=== PATIENT | male | born 1955 | race Caucasian/White ===

== ENCOUNTER 2020-07-11 23:37 | Inpatient (IN) | payer MEDICARE, OTHER ==
[2020-07-11] MEDS ORDERED: Metoprolol Tartrate 5 MG/5 ML VIAL ONE (23:50)
[2020-07-12] MEDS ORDERED: Metoprolol Tartrate 5 MG/5 ML VIAL ONE (00:38)
[2020-07-12] MEDS ORDERED: Diltiazem 125 MG/25 ML ONE (01:20)
[2020-07-12 03:40] LABS: Troponin I Less than 0.010 ng/mL (< 0.028)
[2020-07-12] MEDS ORDERED: Ondansetron PF 4 MG/2 ML Vial IVP PRN (04:34)
[2020-07-12] MEDS: Sodium Chloride 0.9% 1,000 ML IV SCH (06:03)
[2020-07-12] MEDS: Diltiazem 125 MG in Sodium Chloride 0.9% 100 ML IVPB SCH (07:13)
[2020-07-12 07:59] LABS: #Eosinphils 0.2 thou/uL (0.0-0.7); #Lymphocytes 1.5 thou/uL (1.20-3.40); #Monocytes 0.7 thou/uL (0.11-0.59); #Neutrophils 4.1 thou/uL (1.40-6.50); %Basophils 0.2 % (0.0-1.0); %Eosinophils 3.3 % (0.0-10.0); %Neutrophils 62.5 % (42.0-75.0); Hemoglobin 14.8 g/dL (14.0-18.0); Mean Corpuscular HGB CONC 32.8 g/dL (32.0-36.0); Mean Corpuscular Hemoglobin 31.8 pg (27.0-31.0); Mean Corpuscular Volume 96.9 fL (78.0-98.0); Platelet Count 204 thou/uL (130-400); RBC Distribution Width 11.1 % (11.5-14.5); Red Blood Cell (RBC) Count 4.65 mill/uL (4.70-6.10); White Blood Cell (WBC) Count 6.5 thou/uL (4.8-10.8)
[2020-07-12 08:20] LABS: Anion Gap 15 mmol/L (10-20); BUN (Urea Nitrogen) 8 mg/dL (8.4-25.7); Calc. Creatinine Clearance 0 mL/min (70-130); Calcium 9.1 mg/dL (7.8-10.44); Carbon Dioxide 24 mmol/L (23-31); Chloride 102 mmol/L (98-107); Glucose 123 mg/dL (80-115); Potassium 3.7 mmol/L (3.5-5.1); Sodium 137 mmol/L (136-145)
[2020-07-12] MEDS: Apixaban 5 MG TAB PO SCH ×2 (08:34→21:13)
[2020-07-12 08:39] LABS: Troponin I Less than 0.010 ng/mL (< 0.028)
[2020-07-12] MEDS: Acetaminophen 325 MG TAB PO PRN (14:27)
[2020-07-12] MEDS ORDERED: Acetaminophen 325 MG TAB ONE (14:29)
[2020-07-12 15:40] VITALS: BMI 30.9
[2020-07-12] MEDS ORDERED: Melatonin 3 MG TAB PO PRN (22:38)
[2020-07-13] MEDS: Sodium Chloride 0.9% 1,000 ML IV SCH ×2 (02:40→19:22)
[2020-07-13] MEDS: Diltiazem 125 MG in Sodium Chloride 0.9% 100 ML IVPB SCH (02:40)
[2020-07-13 05:29] LABS: #Eosinphils 0.2 thou/uL (0.0-0.7); #Lymphocytes 1.5 thou/uL (1.20-3.40); #Monocytes 0.8 thou/uL (0.11-0.59); #Neutrophils 4.3 thou/uL (1.40-6.50); %Basophils 0.5 % (0.0-1.0); %Eosinophils 3.4 % (0.0-10.0); %Monocytes 11.8 % (0.0-10.0); %Neutrophils 62.4 % (42.0-75.0); Hemoglobin 13.9 g/dL (14.0-18.0); Mean Corpuscular HGB CONC 33.1 g/dL (32.0-36.0); Mean Corpuscular Hemoglobin 32.1 pg (27.0-31.0); Mean Corpuscular Volume 96.7 fL (78.0-98.0); Mean Platelet Volume 6.8 fL (7.4-10.4); Platelet Count 216 thou/uL (130-400); Red Blood Cell (RBC) Count 4.34 mill/uL (4.70-6.10); White Blood Cell (WBC) Count 6.9 thou/uL (4.8-10.8)
[2020-07-13 05:47] LABS: Anion Gap 12 mmol/L (10-20); BUN (Urea Nitrogen) 7 mg/dL (8.4-25.7); Calc. Creatinine Clearance 138 mL/min (70-130); Calcium 8.9 mg/dL (7.8-10.44); Carbon Dioxide 27 mmol/L (23-31); Cardiac Risk 4.4 (Less than 4.5); Chloride 101 mmol/L (98-107); Cholesterol 166 mg/dl (< 200 Desired); Glucose 102 mg/dL (80-115); HDL Cholesterol 38 mg/dL (>60 Neg Risk); LDL Cholesterol, Calculated 103 mg/dL; Potassium 3.8 mmol/L (3.5-5.1); Sodium 136 mmol/L (136-145); Triglycerides 126 mg/dL (Less than 150)
[2020-07-13] MEDS: Acetaminophen 325 MG TAB PO PRN ×2 (08:02→14:28)
[2020-07-13] MEDS: Apixaban 5 MG TAB PO SCH (08:02)
[2020-07-14] MEDS: Sodium Chloride 0.9% 1,000 ML IV SCH (04:37)
[2020-07-14 05:54] LABS: #Eosinphils 0.2 thou/uL (0.0-0.7); #Lymphocytes 2.3 thou/uL (1.20-3.40); #Monocytes 0.9 thou/uL (0.11-0.59); #Neutrophils 2.9 thou/uL (1.40-6.50); %Basophils 0.1 % (0.0-1.0); %Eosinophils 2.6 % (0.0-10.0); %Lymphocytes 36.8 % (21.0-51.0); %Monocytes 13.8 % (0.0-10.0); %Neutrophils 46.7 % (42.0-75.0); Mean Corpuscular HGB CONC 34.2 g/dL (32.0-36.0); Mean Corpuscular Volume 96.5 fL (78.0-98.0); Mean Platelet Volume 6.9 fL (7.4-10.4); Platelet Count 216 thou/uL (130-400); RBC Distribution Width 10.8 % (11.5-14.5); Red Blood Cell (RBC) Count 4.23 mill/uL (4.70-6.10); White Blood Cell (WBC) Count 6.2 thou/uL (4.8-10.8)
[2020-07-14 05:55] LABS: Anion Gap 12 mmol/L (10-20); BUN (Urea Nitrogen) 8 mg/dL (8.4-25.7); Calc. Creatinine Clearance 128 mL/min (70-130); Carbon Dioxide 29 mmol/L (23-31); Chloride 103 mmol/L (98-107); Glucose 91 mg/dL (80-115); Potassium 3.7 mmol/L (3.5-5.1); Sodium 140 mmol/L (136-145)
[2020-07-14] MEDS: Acetaminophen 325 MG TAB PO PRN ×3 (07:30→22:40)
[2020-07-14] MEDS: Amiodarone 200 MG TAB PO SCH ×2 (16:34→20:44)
[2020-07-14] MEDS ORDERED: Loperamide HCl 2 MG CAP PO SCH (17:30)
[2020-07-14] MEDS: Carvedilol 6.25 MG TAB PO SCH (18:31)
[2020-07-14] MEDS: Apixaban 5 MG TAB PO SCH (20:45)
[2020-07-14] MEDS ORDERED: Metoprolol Tartrate 50 MG TAB PO SCH (21:00)
[2020-07-15 06:55] LABS: #Eosinphils 0.2 thou/uL (0.0-0.7); #Lymphocytes 1.7 thou/uL (1.20-3.40); #Monocytes 0.6 thou/uL (0.11-0.59); #Neutrophils 3.2 thou/uL (1.40-6.50); %Basophils 0.5 % (0.0-1.0); %Eosinophils 3.6 % (0.0-10.0); %Lymphocytes 29.8 % (21.0-51.0); %Neutrophils 55.1 % (42.0-75.0); Hemoglobin 14.5 g/dL (14.0-18.0); Mean Corpuscular HGB CONC 33.5 g/dL (32.0-36.0); Mean Corpuscular Volume 95.7 fL (78.0-98.0); Mean Platelet Volume 6.8 fL (7.4-10.4); Platelet Count 230 thou/uL (130-400); RBC Distribution Width 10.8 % (11.5-14.5); Red Blood Cell (RBC) Count 4.54 mill/uL (4.70-6.10); White Blood Cell (WBC) Count 5.8 thou/uL (4.8-10.8)
[2020-07-15 07:16] LABS: Anion Gap 12 mmol/L (10-20); BUN (Urea Nitrogen) 8 mg/dL (8.4-25.7); Calc. Creatinine Clearance 128 mL/min (70-130); Calcium 9.1 mg/dL (7.8-10.44); Carbon Dioxide 27 mmol/L (23-31); Chloride 105 mmol/L (98-107); Glucose 91 mg/dL (80-115); Potassium 4.1 mmol/L (3.5-5.1); Sodium 140 mmol/L (136-145)
[2020-07-15] MEDS: Lisinopril 2.5 MG TAB PO SCH (08:26)
[2020-07-15] MEDS: Amiodarone 200 MG TAB PO SCH ×3 (08:26→20:58)
[2020-07-15] MEDS: Furosemide 20 MG TAB PO SCH (08:27)
[2020-07-15] MEDS: Carvedilol 6.25 MG TAB PO SCH ×2 (08:27→17:32)
[2020-07-15] MEDS: Apixaban 5 MG TAB PO SCH ×2 (08:27→20:58)
[2020-07-15] MEDS: Acetaminophen 325 MG TAB PO PRN ×2 (14:50→21:01)
[2020-07-16] MEDS: Amiodarone 200 MG TAB PO SCH (08:42)
[2020-07-16] MEDS: Carvedilol 6.25 MG TAB PO SCH (08:42)
[2020-07-16] MEDS: Lisinopril 2.5 MG TAB PO SCH (08:43)
[2020-07-16] MEDS: Apixaban 5 MG TAB PO SCH (08:43)
[2020-07-16] MEDS: Furosemide 20 MG TAB PO SCH (08:43)
[2020-07-16] MEDS ORDERED: Aspirin 81 mg Enteric Coated Tablet PO SCH (09:00)
[2020-07-16] MEDS ORDERED: Ezetimibe 10 MG TAB PO SCH (09:00)
[2020-07-16] MEDS: Acetaminophen 325 MG TAB PO PRN (10:22)
[2020-07-16 11:48] VITALS: BP 113/76; TEMP 97.6
[2020-07-16] MEDS ORDERED: Atorvastatin Calcium 40 MG TAB PO SCH (21:00)
== END 2020-07-16 12:54 | disposition home or self-care (01) | DRG 308 ==
LOC: ERS 23:37 → ERHOLD 07-12 03:27 → 2NO 07-12 15:27
PROVIDERS: ADMIT Internal Medicine; ATTEND Student in an Organized Health Care Education/Training Program
DX: I48.92 Unspecified atrial flutter (principal); I50.23 Acute on chronic systolic (congestive) heart failure; K52.1 Toxic gastroenteritis and colitis; I25.10 Atherosclerotic heart disease of native coronary artery without angina pectoris; E78.5 Hyperlipidemia, unspecified; T50.B95A Adverse effect of other viral vaccines, initial encounter; I11.0 Hypertensive heart disease with heart failure; I48.20 Chronic atrial fibrillation, unspecified; R53.1 Weakness; G47.33 Obstructive sleep apnea (adult) (pediatric); Z95.5 Presence of coronary angioplasty implant and graft; Z90.89 Acquired absence of other organs
CPT/HCPCS: 36415; 71045; 80048; 80061; 83735; 84443; 84484; 85025; 87045; 87046; 87324; 87427; 87449; 93005; 93306; 96365; 96366; 96375; 96376; J3490

== ENCOUNTER 2021-03-07 05:46 | Day surgery (SDC) | payer MEDICARE ==
[2021-03-04 12:45] VITALS: BMI 25.8
[2021-03-07] MEDS ORDERED: Heparin 10,000 UNITS/ 10 ML VIAL ONE (06:49)
[2021-03-07] MEDS ORDERED: Fentanyl 100 MCG/2 ML VIAL ONE (07:07)
[2021-03-07] MEDS ORDERED: Midazolam HCl 2 mg/2 ml Vial ONE (07:07)
[2021-03-07] MEDS ORDERED: Protamine Sulfate 50 MG/5 ML VIAL ONE (07:42)
[2021-03-07] MEDS ORDERED: Iopamidol 370 76% 100 ML VIAL ONE (09:14)
== END 2021-03-07 14:45 | disposition home or self-care (01) ==
LOC: SDC 05:46
PROVIDERS: ATTEND Internal Medicine Cardiovascular Disease
PROC: 4A023N7 Measurement of Cardiac Sampling and Pressure, Left Heart, Percutaneous Approach (ICD-10-PCS; principal; 2021-03-07)
PROC: B2111ZZ Fluoroscopy of Multiple Coronary Arteries using Low Osmolar Contrast (ICD-10-PCS; 2021-03-07)
DX: R07.9 Chest pain, unspecified (principal); I25.10 Atherosclerotic heart disease of native coronary artery without angina pectoris; I42.9 Cardiomyopathy, unspecified; G47.33 Obstructive sleep apnea (adult) (pediatric); E78.5 Hyperlipidemia, unspecified; E78.00 Pure hypercholesterolemia, unspecified; I10 Essential (primary) hypertension; I48.0 Paroxysmal atrial fibrillation; I48.3 Typical atrial flutter; Z79.01 Long term (current) use of anticoagulants; Z79.82 Long term (current) use of aspirin; Z79.899 Other long term (current) drug therapy; Z95.5 Presence of coronary angioplasty implant and graft
CPT/HCPCS: 85347; 93460; 93567; 99152; J1644; J2250; J2720; J3010; Q9967